=== PATIENT | male | born 1950 | race Caucasian/White ===

== ENCOUNTER 2016-07-29 20:08 | Emergency (ER) | payer MEDICARE, OTHER ==
[~2016-07-29] VITALS: Ht 195.6 cm; Wt 107.0 kg
[~2016-07-29 20:08] MED LIST: Z.0.NO CURRENT MEDS
[2016-07-29 20:11] VITALS: BP 138/91; PULSE 85; RESP 16; TEMP 98.3; O2SAT 97
[2016-07-29] MEDS ORDERED: IRBE75TA5 PO (20:23)
--- NOTE | 2016-07-29 21:05 | PD ---
HPI Chief Complaint: Musculoskeletal Complaint Time Seen by Provider: 20:53 Travel History International Travel<30 days: No Contact w/Intl Traveler<30days: No Traveled to known affect area: No History of Present Illness HPI 66-year-old male presents to the emergency department by private transportation the care of his spouse for evaluation of left wrist injury. According to patient approximate 2 days ago while trying to get off of a boat he had a slip and near fall catching himself with an outstretched left upper extremity. Patient states he injured his left wrist. Patient has noted some swelling and tenderness to the area. Patient denies any numbness tingling or weakness. Patient is right-handed. Patient was using ice intermittently and over-the- counter left wrist splint and ibuprofen for symptom relief. Due to ongoing symptoms and increasing swelling decided to come to the emergency room at this time for evaluation. Patient does not take any blood thinning agents. Patient is right-handed. Patient also sustained superficial abrasions to the right lower leg and knee. Last tetanus immunization less than 5 years ago. Patient rates his pain intermittently has moderate to severe. Patient denies other injury. Patient states he did not hit his head did not lose consciousness did not injure his neck back chest ribs abdomen pelvis or other extremities. Patient denies any shortness of breath. Patient's had no proximal left upper extremity injury or pain. Symptoms are somewhat relieved with rest remaining still and increased with range of motion or palpation. [facility] Past Medical History Narrative Medical Hypertension; appendectomy tonsillectomy dental extraction; no tobacco use: Nursing notes reviewed Heart Rhythm Problems: No Cardiac Catheterization: No Cardiovascular Problems: No High Cholesterol: No Congestive Heart Failure: No Diabetes: No Diminished Hearing: No Heparin Induced Thrombocytopen: No Hypertension: Yes Tetanus Vaccination: < 5 Years Influenza Vaccination: No ?: Not Past Surgical History Appendectomy: Yes (1955) Coronary Artery Bypass Graft: No Oral Surgery: Yes (TEETH EXTRACTIONS) Tonsillectomy: Yes (1956) Social History Alcohol Use: No Tobacco Use: No Substance Use: No Allergies-Medications (Allergen,Severity, Reaction): Coded Allergies: No Known Allergies (Verified , 07/29/16) Reported Meds & Prescriptions Reported Meds & Active Scripts Active Reported Irbesartan 75 Mg Tab 75 Mg PO DAILY Review of Systems Except as stated in HPI: all other systems reviewed are Neg General / Constitutional: No: Fever HENT: No: Congestion, Neck Pain Cardiovascular: No: Chest Pain or Discomfort Respiratory: No: Shortness of Breath Gastrointestinal: No: Abdominal Pain Genitourinary: No: Flank Pain Musculoskeletal: Positive: Pain (wrist) Skin: Positive Rash (abrasion) Neurologic: No: Weakness Psychiatric: No: Anxiety Hematologic/Lymphatic: No: Easy Bruising Physical Exam Narrative GENERAL: Well-developed well-nourished male distress no respiratory distress. GCS 15. SKIN: Warm and dry. Superficial abrasions to the right lower leg and knee. HEAD: Normocephalic. EYES: No scleral icterus. No injection or drainage. NECK: Supple, trachea midline. No JVD or lymphadenopathy. No midline cervical spine tenderness to direct palpation no bony step-off. CARDIOVASCULAR: Regular rate and rhythm without murmurs, gallops, or rubs. RESPIRATORY: Breath sounds equal bilaterally. No accessory muscle use. GASTROINTESTINAL: Abdomen soft, non-tender, nondistended. MUSCULOSKELETAL: No cyanosis, or edema. Attention left upper extremity mild swelling to the left wrist and dorsum of left hand with mild erythema no increased warmth no abrasion or laceration. Decreased range of motion secondary to pain and swelling. Capillary refill brisk and less than 2 seconds per digit. Sensory exam intact. No bony deformity. Radial pulse 2+ to palpation. Proximally no deformity tenderness or edema. BACK: Nontender without obvious deformity. No CVA tenderness. Data Data Last Documented VS Vital Signs Date Time Temp Pulse Resp B/P Pulse Ox O2 Delivery O2 Flow Rate FiO2 07/29/16 20:11 98.3 85 16 138/91 97 Orders Wrist, Complete ([id number]) (07/29/16 ) Splint Or Brace Apply/Monitor (07/29/16 21:49) Cockup Hand Splint (07/29/16 ) MDM Medical Decision Making Medical Screen Exam Complete: Yes Emergency Medical Condition: Yes Medical Record Reviewed: Yes Interpretation(s) Last Impressions Wrist X-Ray 07/29/16 0000 Signed Impressions: Service Date/Time: July 21:19 - CONCLUSION: No fracture or subluxation of the left wrist. Flash Smith MD Differential Diagnosis Strain sprain fracture subluxation tendinitis ligamentous injury abrasion contusion Narrative Course Imaging of the left wrist ordered At 9:46 PM imaging study read by radiologist as no acute bony abnormality no fracture seen; patient encouraged to wear preformed Velcro splint continue to use as tolerated ibuprofen for pain associated inflammation; encouraged to follow-up with orthopedic surgeon for ongoing discomfort or pain. Patient informed of imaging results will provide patient with properly fitting Velcro splint. Also encouraged to keep abrasions clean and dry. Diagnosis Primary Impression: Left wrist sprain Qualified Code: S63.502A - Left wrist sprain, initial encounter Additional Impression: Abrasion, right lower leg, initial encounter Referrals: Orthopaedic Surgeon as needed Primary Care Physician call for appointment Patient Instructions: General Instructions Additional Instructions: Wear splint Follow-up with your primary care provider call office in a.m. to schedule follow -up appointment Follow-up with orthopedist as needed May use ice intermittently for pain associated with inflammation or moist heat as needed for comfort Recommend ibuprofen/Advil/Motrin as needed for pain associated with inflammation as often as every 6-8 hours Return to the emergency department for any concerns or change in condition Elevate extremity Med/Other Pt SpecificInfo: No Change to Meds Disposition: 01 DISCHARGE HOME Condition: Stable Germania Talavera MD July 29, 2016 21:05
--- NOTE | 2016-07-29 21:39 | RADHPO ---
EXAM DATE/TIME: 07/29/2016 21:19 [place] COMPARISON: No previous studies available for comparison. INDICATIONS : Patient fell on Tuesday evening. Pain only when patient lifts anything. MEDICAL HISTORY : None. SURGICAL HISTORY : None. ENCOUNTER: Initial ACUITY: 2 days PAIN SCORE: 0/10 LOCATION: Left Wrist. FINDINGS: Three view examination of the left wrist demonstrates no soft tissue swelling, dislocation, or fractu re. The carpal bones are in normal alignment. The joint spaces are maintained. Bony mineralization is normal. CONCLUSION: No fracture or subluxation of the left wrist. Flash Smith MD on July 29, 2016 at 21:37 Board Certified Radiologist. This report was verified electronically.
== END 2016-07-29 22:06 | disposition home or self-care (01) ==
LOC: PHEFT 20:08
DX: S63.502A Unspecified sprain of left wrist, initial encounter (principal); S80.811A Abrasion, right lower leg, initial encounter; I10 Essential (primary) hypertension; W01.0XXA Fall on same level from slipping, tripping and stumbling without subsequent striking against object, initial encounter
CPT/HCPCS: 73110; 99283; L3908